=== PATIENT | female | born 2000 ===

== ENCOUNTER 2021-11-06 23:56 | Emergency (ER) | payer SELFPAY ==
[2021-11-07 00:43] LABS: BILIRUBIN,URINE NEGATIVE (NEGATIVE); CLARITY,URINE CLEAR; COLOR,URINE YELLOW; GLUCOSE, URINE (UA) NEGATIVE (NEGATIVE); KETONES,URINE NEGATIVE (NEGATIVE); LEUKOCYTE ESTERASE ,URINE 1+ (NEGATIVE); NITRITE,URINE NEGATIVE (NEGATIVE); PROTEIN,URINE NEGATIVE (NEGATIVE)
[2021-11-07 00:47] LABS: BASOPHILS # (AUTO) 0.1 10^3/uL (0.0-0.1); BASOPHILS % (AUTO) 1 % (0-10); EOSINOPHILS # (AUTO) 0.3 10^3/uL (0.0-0.3); EOSINOPHILS % (AUTO) 2 % (0-10); HEMATOCRIT 43 % (35-52); HEMOGLOBIN 13.9 g/dL (11.5-16.0); LYMPHOCYTES # (AUTO) 4.8 10^3/uL (1.0-4.0); LYMPHOCYTES % (AUTO) 38 % (12-44); MEAN CORPUSCULAR HEMOGLOBIN 25 pg (25-34); MEAN CORPUSCULAR HGB CONC 32 g/dL (32-36); MEAN CORPUSCULAR VOLUME 76 fL (80-99); MEAN PLATELET VOLUME 10.6 fL (9.0-12.2); MONOCYTES # (AUTO) 0.7 10^3/uL (0.0-1.0); MONOCYTES % (AUTO) 6 % (0-12); NEUTROPHILS # (AUTO) 6.7 10^3/uL (1.8-7.8); NEUTROPHILS % (AUTO) 53 % (42-75); PLATELET COUNT 278 10^3/uL (130-400); WHITE BLOOD COUNT 12.7 10^3/uL (4.3-11.0)
--- NOTE | 2021-11-07 00:47 | ED General ---
General Chief Complaint: Chest Wall Stated Complaint: CHEST PAIN,UNABLE TO SPEAK Nursing Triage Note: PT ARRIVAL TO ER WITH COMPLAINT OF CHEST PAIN EARLIER, AND SORE THROAT. PT STATES THAT IT STARTED AFTER PUFFING ON NEW E-CIG. PT CHEST PAIN LASTED ONLY A COUPLE MINUTES. PT IS PAIN FREE AT THE MOMENT, BUT STATES THAT IT FEELS WEIRD WHEN SHE TALKS. Source of Information: Patient (VIA VIDEO LANGUAGE LINE), Respiratory Physician Exam Limitations: Language Barrier History of Present Illness Date Seen by Provider: Nov 07, 2021 Time Seen by Provider: 00:15 Initial Comments PT ARRIVES VIA POV FROM HOME EARLIER THIS EVENING, SHE HAD SOME CHEST PAIN AND "FEELS LIKE MY VOICE IS GONE" LATER STATES SHE HAS A SORE THROAT SHE IS NOT HAVING CHEST PAIN AT THIS TIME, AND IT LASTED ONLY A COUPLE OF MINUTES. NO SHORTNESS OF BREATH NO FEVER NO COUGH OR URI SYMPTOMS STATES HER THROAT DOES NOT HURT ANYMORE, IT "JUST FEELS WEIRD WHEN I TALK" SYMPTOMS BEGAN TONIGHT IMMEDIATELY AFTER SHE USED A NEW "E-CIGARETTE" STATES SHE PURCHASED IT HERSELF NO HISTORY OF SIMILAR. NO CHRONIC MEDICAL PROBLEMS AND DOES NOT TAKE ANY MEDICATIONS PT HAS NOT HAD COVID VACCINE PCP: NONE Allergies and Home Medications Allergies Coded Allergies: No Known Drug Allergies (Unverified , 11/07/21) Review of Systems Review of Systems Constitutional: no symptoms reported EENTM: see HPI Respiratory: no symptoms reported Cardiovascular: see HPI Gastrointestinal: no symptoms reported Genitourinary: no symptoms reported Musculoskeletal: no symptoms reported Skin: no symptoms reported Psychiatric/Neurological: Anxiety Hematologic/Lymphatic: No Symptoms Reported Immunological/Allergic: no symptoms reported Past Jssitil-Zfjsts-Hjahqa Hx Patient Social History Tobacco Use?: No Use of E-Cig and/or Vaping dev: Yes E-Cig or Vaping type used: Nicotine Use of E-Cig and/or Vaping Oni: Current Everyday User Substance use?: No Alcohol Use?: No Pt feels they are or have been: No Immunizations Up To Date Influenza Vaccine Up-to-Date: No; Not Current Past Medical History Surgeries: No Respiratory: No Cardiac: No Neurological: No : No Genitourinary: No Gastrointestinal: No Musculoskeletal: No Endocrine: Yes (GESTATIONAL DIABETES) HEENT: No Cancer: No Psychosocial: No Integumentary: No Blood Disorders: No Physical Exam Vital Signs Vital Signs - First Documented 11/07/21 00:12 Temp 36.3 Pulse 86 Resp 17 B/P (MAP) 132/78 (96) Pulse Ox 98 O2 Delivery Room Air Capillary Refill : Less Than 3 Seconds Height, Weight, BMI Height: '" Weight: lbs. oz. kg; BMI Method: General Appearance: No Apparent Distress, WD/WN, Anxious, Obese HEENT: PERRL/EOMI, TMs Normal, Normal ENT Inspection, Pharynx Normal, Moist Mucous Membranes Neck: Full Range of Motion, Normal Inspection, Non Tender, Supple Respiratory: Chest Non Tender, Normal Breath Sounds, No Accessory Muscle Use, No Respiratory Distress Cardiovascular: Regular Rate, Rhythm, No Edema, No JVD, No Murmur, Normal Peripheral Pulses Gastrointestinal: Non Tender, Soft Extremity: Normal Capillary Refill, Normal Inspection, Normal Range of Motion, Non Tender, No Calf Tenderness, No Pedal Edema Neurologic/Psychiatric: Alert, Oriented x3, No Motor/Sensory Deficits, 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 Norm as Tested, Other (ANXIOUS) Skin: Normal Color (PT IS ), Warm/Dry; No Rash Progress/Results/Core Measures Suspected Sepsis SIRS Temperature: Pulse: 86 Respiratory Rate: 17 Laboratory Tests 11/07/21 00:37: White Blood Count 12.7H Blood Pressure 132 /78 Mean: 96 Laboratory Tests 11/07/21 00:37: Creatinine 0.73, Platelet Count 278, Total Bilirubin 0.3 Results/Orders Lab Results Laboratory Tests Test 11/07/21 00:25 11/07/21 00:35 11/07/21 00:37 Range/Units SARS-CoV-2 RNA (RT-PCR) Not Detected Not Detecte Urine Color YELLOW Urine Clarity CLEAR Urine pH 7.0 5-9 Urine Specific [place] <=1.005 1.016-1.022 Urine Protein NEGATIVE NEGATIVE Urine Glucose (UA) NEGATIVE NEGATIVE Urine Ketones NEGATIVE NEGATIVE Urine Nitrite NEGATIVE NEGATIVE Urine Bilirubin NEGATIVE NEGATIVE Urine Urobilinogen 0.2 < = 1.0 MG/DL Urine Leukocyte Esterase 1+ H NEGATIVE Urine RBC (Auto) NEGATIVE NEGATIVE Urine RBC NONE /HPF Urine WBC 0-2 /HPF Urine Squamous Epithelial Cells RARE /HPF Urine Crystals NONE /LPF Urine Bacteria NEGATIVE /HPF Urine Casts NONE /LPF Urine Mucus NEGATIVE /LPF Urine Culture Indicated NO Urine Opiates Screen NEGATIVE NEGATIVE Urine Oxycodone Screen NEGATIVE NEGATIVE Urine Methadone Screen NEGATIVE NEGATIVE Urine Propoxyphene Screen NEGATIVE NEGATIVE Urine Barbiturates Screen NEGATIVE NEGATIVE Ur Tricyclic Antidepressants Screen NEGATIVE NEGATIVE Urine Phencyclidine Screen NEGATIVE NEGATIVE Urine Amphetamines Screen NEGATIVE NEGATIVE Urine Methamphetamines Screen NEGATIVE NEGATIVE Urine Benzodiazepines Screen NEGATIVE NEGATIVE Urine Cocaine Screen NEGATIVE NEGATIVE Urine Cannabinoids Screen NEGATIVE NEGATIVE Group A Streptococcus Screen NEGATIVE NEGATIVE White Blood Count 12.7 H 4.3-11.0 10^3/uL Red Blood Count 5.67 H 3.80-5.11 10^6/uL Hemoglobin 13.9 11.5-16.0 g/dL Hematocrit 43 35-52 % Mean Corpuscular Volume 76 L 80-99 fL Mean Corpuscular Hemoglobin 25 25-34 pg Mean Corpuscular Hemoglobin Concent 32 32-36 g/dL Red Cell Distribution Width 15.9 H 10.0-14.5 % Platelet Count 278 130-400 10^3/uL Mean Platelet Volume 10.6 9.0-12.2 fL Immature Granulocyte % (Auto) 0 % Neutrophils (%) (Auto) 53 42-75 % Lymphocytes (%) (Auto) 38 12-44 % Monocytes (%) (Auto) 6 0-12 % Eosinophils (%) (Auto) 2 0-10 % Basophils (%) (Auto) 1 0-10 % Neutrophils # (Auto) 6.7 1.8-7.8 10^3/uL Lymphocytes # (Auto) 4.8 H 1.0-4.0 10^3/uL Monocytes # (Auto) 0.7 0.0-1.0 10^3/uL Eosinophils # (Auto) 0.3 0.0-0.3 10^3/uL Basophils # (Auto) 0.1 0.0-0.1 10^3/uL Immature Granulocyte # (Auto) 0.0 0.0-0.1 10^3/uL Sodium Level 137 135-145 MMOL/L Potassium Level 3.7 3.6-5.0 MMOL/L Chloride Level 105 98-107 MMOL/L Carbon Dioxide Level 19 L 21-32 MMOL/L Anion Gap 13 5-14 MMOL/L Blood Urea Nitrogen 9 7-18 MG/DL Creatinine 0.73 0.60-1.30 MG/DL Estimat Glomerular Filtration Rate 119 BUN/Creatinine Ratio 12 Glucose Level 257 H 70-105 MG/DL Calcium Level 10.0 8.5-10.1 MG/DL Corrected Calcium 9.7 8.5-10.1 MG/DL Magnesium Level 1.8 1.6-2.4 MG/DL Total Bilirubin 0.3 0.1-1.0 MG/DL Aspartate Amino Transf (AST/SGOT) 23 5-34 U/L Alanine Aminotransferase (ALT/SGPT) 52 0-55 U/L Alkaline Phosphatase 115 40-136 U/L Troponin I < 0.028 <0.028 NG/ML Total Protein 8.0 6.4-8.2 GM/DL Albumin 4.4 3.2-4.5 GM/DL Beta-Hydroxybutyrate (Chem panel) 0.08 0.00-0.27 MMOL/L TSH [place]uce Testing 4.03 0.35-4.94 UIU/ML Serum Alcohol < 10 <10 MG/DL Monoscreen NEGATIVE NEGATIVE My Orders Orders - GARY HOLT DO Ed Iv/Invasive Line Start (11/07/21 00:19) Urine Bedside (11/07/21:19) Ekg Tracing (11/07/21:) Monitor-Rhythm Ecg Trace Only (11/07/21:19) Alcohol (11/07/21:) Cbc With Automated Diff (11/07/21:) Comprehensive Metabolic Panel (11/07/21:) Drug Screen Stat (Urine) (11/07/21:) Magnesium (11/07/21:19) Thyroid Analyzer (11/07/21:) Ua Culture If Indicated (11/07/21:) Troponin I [place] (11/07/21:19) Chest 1 View, Ap/Pa Only (11/07/21:19) Covid 19 Inhouse Test (11/07/21:19) Isolation Central Supply Req (11/07/21:19) Monotest (11/07/21:23) Rapid Strep A Screen (11/07/21:23) Beta Hydroxybutyrate (11/07/21 01:05) Hemoglobin A1c (11/07/21 01:05) Ed Iv/Invasive Line Start (11/07/21 01:05) Ns Iv 1000 Ml (Sodium Chloride 0.9%) (11/07/21 01:15) Vital Signs/I&O 11/07/21 00:12 Temp 36.3 Pulse 86 Resp 17 B/P (MAP) 132/78 (96) Pulse Ox 98 O2 Delivery Room Air Capillary Refill : Less Than 3 Seconds Blood Pressure Mean: 96 Progress Note : Progress Note NO SYMPTOMS OF ANY KIND DURING ER STAY ON REVIEWING TEST RESULTS, DISCUSSED ELEVATED BLOOD SUGAR PT NOW REPORTS THAT SHE WAS TOLD HER BLOOD SUGAR WAS "VERY VERY HIGH" WHEN SHE WAS LAST YEAR--DELIVERED A YEAR AGO AT [facility] PT HAS NEVER FOLLOWED UP WITH ANYONE AT ANY TIME FOR BLOOD SUGAR OR ROUTINE MEDICAL CARE AT ANY TIME. SHE DID HAVE A DEPO-PROVERA SHOT 3 MONTHS AGO AT [facility] IN [place] PT RECENTLY MOVED TO [place]. Departure Impression Primary Impression: Hyperglycemia Disposition: 01 HOME, SELF-CARE Condition: Stable Departure-Patient Inst. Patient Instructions: High Blood Sugar, Adult ED, Blood Glucose Monitoring Add. Discharge Instructions: FOLLOW UP WITH LOCAL DR OF CHOICE THIS WEEK FOR FURTHER CARE TOMORROW MORNING OR TUESDAY MORNING TO SCHEDULE APPOINTMENT--LIST PROVIDED All discharge instructions reviewed with patient and/or family. Voiced understanding. Work/School Note: Local Medical Staff Listing GARY HOLT DO Nov 07, 2021 00:47
[2021-11-07 00:51] LABS: BACTERIA,URINE NEGATIVE /HPF; SQUAMOUS EPITHELIAL CELL,UR RARE /HPF; WBC,URINE 0-2 /HPF
[2021-11-07 00:56] LABS: AMPHETAMINE SCREEN, URINE NEGATIVE (NEGATIVE); BARBITURATE SCREEN URINE NEGATIVE (NEGATIVE); BENZODIAZEPINES SCREEN URINE NEGATIVE (NEGATIVE); CANNABINOID SCREEN, URINE NEGATIVE (NEGATIVE); COCAINE SCREEN URINE NEGATIVE (NEGATIVE); METHADONE STAT NEGATIVE (NEGATIVE); OPIATE SCREEN URINE NEGATIVE (NEGATIVE); OXYCODONE STAT NEGATIVE (NEGATIVE); PROPOXYPHENE STAT NEGATIVE (NEGATIVE); TRICYCLIC ANTIDEPRESSANTS SCRE NEGATIVE (NEGATIVE)
[2021-11-07 01:01] LABS: ALBUMIN 4.4 GM/DL (3.2-4.5); CHLORIDE 105 MMOL/L (98-107); POTASSIUM 3.7 MMOL/L (3.6-5.0); SODIUM 137 MMOL/L (135-145)
[2021-11-07 01:03] LABS: GLUCOSE 257 MG/DL (70-105)
[2021-11-07 01:04] LABS: CARBON DIOXIDE 19 MMOL/L (21-32)
[2021-11-07 01:05] LABS: BILIRUBIN,TOTAL 0.3 MG/DL (0.1-1.0)
[2021-11-07 01:07] LABS: ALKALINE PHOSPHATASE 115 U/L (40-136); CREATININE SERUM 0.73 MG/DL (0.60-1.30); GFR ESTIMATED 119
[2021-11-07 01:08] LABS: BUN/CREATININE RATIO 12
[2021-11-07 01:10] LABS: ALANINE AMINOTRANSFERASE 52 U/L (0-55); MAGNESIUM 1.8 MG/DL (1.6-2.4)
[2021-11-07] MEDS ORDERED: NS IV 1000 ML 1,000 ML IV SCH (01:15)
[2021-11-07 01:30] LABS: TSH (THYROID ANALYZER) 4.03 UIU/ML (0.35-4.94)
[2021-11-07 03:51] VITALS: BP 128/77
--- NOTE | 2021-11-07 06:55 | Diagnostic Imaging Report ---
INDICATION: Chest pain. FINDINGS: The heart size, mediastinal configuration, and pulmonary vascularity are within normal limits. There is no pleural effusion, pneumothorax, or pneumonia. The osseous structures are unremarkable. IMPRESSION: No acute cardiopulmonary abnormality. Dictated by: Dictated on workstation # [id number]
== END 2021-11-07 03:56 | disposition home or self-care (01) ==
LOC: ER 23:58
DX: R73.9 Hyperglycemia, unspecified (principal); E66.9 Obesity, unspecified; F17.290 Nicotine dependence, other tobacco product, uncomplicated; Z20.822 Contact with and (suspected) exposure to COVID-19
CPT/HCPCS: 71045; 80053; 80306; 81000; 82010; 82947; 83036; 83735; 84443; 84484; 84703; 85025; 86308; 87430; 87636; 93005; 93041; 99284; G0480; 36415; 80320